=== PATIENT | female | born 1965 | race Native Hawaiian/Other Pacific Islander ===

== ENCOUNTER 2019-01-11 09:41 | Outpatient (CLI) | payer OTHER | END 2019-01-11 23:20 | disposition home or self-care (01) | LOC: MAMMO 09:41 | DX: Z12.31 Encounter for screening mammogram for malignant neoplasm of breast (principal) ==

== ENCOUNTER 2020-04-26 10:49 | Outpatient (CLI) | payer OTHER | END 2020-04-26 20:44 | disposition home or self-care (01) | LOC: MAMMO 10:49 | PROVIDERS: ATTEND Registered Nurse | DX: Z12.31 Encounter for screening mammogram for malignant neoplasm of breast (principal) ==

== ENCOUNTER 2021-11-23 10:38 | Outpatient (CLI) | payer OTHER | END 2021-11-23 21:11 | disposition home or self-care (01) | LOC: US 10:38 | PROVIDERS: ATTEND Nurse Practitioner | DX: R10.11 Right upper quadrant pain (principal) | CPT/HCPCS: A9537 ==